=== PATIENT | male | born 1945 | race Caucasian/White ===

== ENCOUNTER 2018-05-11 14:56 | Emergency (ER) | payer MEDICARE, OTHER ==
--- NOTE | 2018-05-11 15:07 | EDM.PDOC ---
ED HPI GENERAL MEDICAL PROBLEM - General Chief Complaint: Eye Problems Stated Complaint: Right orbit swelling; head injury Time Seen by Provider: 05/11/18 15:05 Source of Information: Reports: Patient, Family, RN, RN Notes Reviewed History Limitations: Reports: No Limitations - History of Present Illness INITIAL COMMENTS - FREE TEXT/NARRATIVE: Patient presents to the ED at [facility] for the evaluation of right orbit swelling after he sustained a head injury around 1130 am today. Patient states he slipped and fell out of the bucket on his skid steer. He states he hit his head on the cement. He denies any LOC. He remembers the entire injury. He denies any visual field disturbances. Vision is normal. He denies any neck or back pain. No face or jaw pain. Denies any previous injury or trauma. He states his right orbit started to swell shortly after the injury. Onset: Today, Sudden Onset Date: 05/11/18 Onset Time: 11:30 - Related Data Allergies Allergy/AdvReac Type Severity Reaction Status Date / Time No Known Allergies Allergy Verified 05/11/18 15:02 Home Meds: Home Meds Multivitamin [Multivitamins] 1 tab PO DAILY 05/11/18 [History] Social & Family History - Tobacco Use Smoking Status *Q: Never Smoker - Recreational Drug Use Recreational Drug Use: No ED ROS GENERAL - Review of Systems Review Of Systems: See Below Constitutional: Denies: Fever, Chills HEENT: Denies: Ear Pain, Eye Pain, Nose Pain, Vision Change Respiratory: Denies: Shortness of Breath, Cough Cardiovascular: Denies: Chest Pain, Palpitations Musculoskeletal: Denies: Neck Pain, Back Pain Skin: Reports: Bruising (right orbit) Neurological: Reports: No Symptoms. Denies: Confusion, Dizziness, Headache, Numbness, Paresthesia, Tingling ED EXAM GENERAL W FULL EYE - Physical Exam Exam: See Below Exam Limited By: No Limitations General Appearance: Alert, No Apparent Distress Eye Exam: Right Eye: Periorbital Changes (swelling and bruising of the right orbit; skin intact; no eye involvement), Bilateral Eye: EOMI, Normal Inspection Eyelids: Right: Ecchymosis, Left: Normal Appearance Conjunctiva & Sclera: Bilateral: Normal Appearance Cornea Exam: Bilateral: Normal Appearance Extraocular Movements: Bilateral: Intact Pupils: Normal Accommodation Pupillary Size: Bilateral: 4 mm Pupillary Reaction: Bilateral: Brisk Ears: Normal External Exam, Normal Canal, Normal TMs Head: Atraumatic, Normocephalic Neck: Normal Inspection, Supple, Non-Tender, Full Range of Motion Respiratory/Chest: No Respiratory Distress, Lungs Clear, Normal Breath Sounds Cardiovascular: Normal Peripheral Pulses, Regular Rate, Rhythm Neurological: Alert, Oriented Skin Exam: Warm, Dry, Intact, Ecchymosis (right orbit) Course - Vital Signs Last Recorded V/S: Last Vital Signs Temp 36.1 C 05/11/18 14:58 Pulse 58 L 05/11/18 14:58 Resp 16 05/11/18 14:58 BP 138/75 05/11/18 14:58 Pulse Ox 96 05/11/18 14:58 - Orders/Labs/Meds Orders: Active Orders 24 hr Category Date Time Status Orbit Sella PF IAC wo Cont [CT] Stat Exams 05/11/18 15:06 Taken - Radiology Interpretation Free Text/Narrative:: CT Orbit, Right: Moderate right periorbital edema. In the absence of trauma, this could be seen with periorbital swelling. The orbit is unremarkable. No fluid collections. See scanned report in EMR for details CT Results Date: 05/11/18 CT Results Time: 15:55 Departure - Departure Time of Disposition: 16:00 Disposition: Home, Self-Care 01 Condition: Good Clinical Impression: Periorbital swelling Head injury due to trauma Qualifiers: Encounter type: initial encounter Qualified Code(s): S09.90XA - Unspecified injury of head, initial encounter Contusion, eye, right Qualifiers: Encounter type: initial encounter Qualified Code(s): S05.11XA - Contusion of eyeball and orbital tissues, right eye, initial encounter - Discharge Information *PRESCRIPTION DRUG MONITORING PROGRAM REVIEWED*: Not Applicable *COPY OF PRESCRIPTION DRUG MONITORING REPORT IN PATIENT PALMER: Not Applicable Instructions: Head Injury, Adult, [id number], Eye Contusion Forms: ED Department Discharge Additional Instructions: 1. Stay well hydrated and rest 2. Apply heat/ice to the right eye several times a day for the next couple days 3. Tylenol/Advil for pain 4. Rest and relax for the next couple days 5. See your PCP as symptoms warrant, may need to see an eye professional if your vision changes - Problem List Review Problem List Initiated/Reviewed/Updated: Yes - My Orders Last 24 Hours: My Active Orders 05/11/18 15:06 Orbit Sella PF IAC wo Cont [CT] Stat - Assessment/Plan Last 24 Hours: My Active Orders 05/11/18 15:06 Orbit Sella PF IAC wo Cont [CT] Stat Assessment:: Head injury Right Orbit swelling Plan: CT scan discussed with patient. No acute emergency found. No blow out fracture seen on CT scan. Recommend ice and heat to right orbit. If any vision changes, recommend professional eye exam. Tylenol/Advil for pain. See PCP as symptoms warrant
--- NOTE | 2018-05-13 10:07 | CT ---
[id number] CT/CT Facial Bones WO IV EXAM: CT FACIAL BONES. INDICATION: CLOSED HEAD INJURY, RIGHT ORBIT SWELLING. COMPARISON: None. DISCUSSION: No facial bone fracture or suspicious osseous lesion identified. The paranasal sinuses are normally aerated. There is right periorbital edema. No fluid collections. The orbits are unremarkable. IMPRESSION: 1. Moderate right periorbital edema. In the absence of trauma, this could be seen with periorbital cellulitis. The orbit is unremarkable. No fluid collections. Tree Krishna DO 05/13/18 1007 Thank you for allowing us to participate in the care of your patient.
== END 2018-05-11 16:05 | disposition home or self-care (01) ==
LOC: VM.ED 14:56
DX: S05.11XA Contusion of eyeball and orbital tissues, right eye, initial encounter (principal); S09.90XA Unspecified injury of head, initial encounter; W01.198A Fall on same level from slipping, tripping and stumbling with subsequent striking against other object, initial encounter
CPT/HCPCS: 70480; 99283-25; 99284-GF